=== PATIENT | male | born 1960 | race Two or more races ===

== ENCOUNTER 2023-11-12 13:58 | Inpatient (IN) | payer MEDICAID, OTHER ==
[~2023-11-12] VITALS: Ht 188 cm; Wt 112.4 kg
[2023-11-12] MEDS ORDERED: MORPHINE SULFATE INJ 2 MG/ml SYRG IV PRN (15:00)
[2023-11-12] MEDS ORDERED: ONDANSETRON HCL 4 MG/2 ML VIAL IV PRN (15:00)
[2023-11-12] MEDS ORDERED: ACETAMINOPHEN 325 MG TAB PO PRN (15:00)
[2023-11-12] MEDS ORDERED: HYDROcodone-ACET 5/325MG TAB PO PRN (15:00)
[2023-11-12] MEDS ORDERED: VANCOMYCIN PER PHARMACY 0 MG IV SCH (15:00)
[2023-11-12] MEDS ORDERED: DEXTROSE (50%) 50ML SYRG IV PRN (15:15)
[2023-11-12] MEDS: InsuLIN REG 1unit/0.01ml Soln (100units/ml) SC SCH ×2 (17:00→22:50)
[2023-11-12] MEDS ORDERED: PIPERACILLIN-TAZOB 3.375GM 100 ML IV SCH (18:00)
[2023-11-12 19:59] VITALS: BP 152/75; PULSE 63; RESP 20; TEMP 98.2
[2023-11-12 20:00] VITALS: BP 152/75; PULSE 63; RESP 20; TEMP 98.2; O2SAT 94
[2023-11-12 20:13] LABS: Prothrombin Time 10.5 sec (9.3-11.8)
[2023-11-12] MEDS ORDERED: CHLO25TA2 PO (20:25)
[2023-11-12] MEDS ORDERED: METF-372 PO (20:25)
[2023-11-12] MEDS ORDERED: GLIP10TA9 PO (20:25)
[2023-11-12] MEDS ORDERED: SIMV40TA18 PO (20:25)
[2023-11-12] MEDS: ACCU-CHEK COMFORT CURVE STRIP VI SCH (20:53)
[2023-11-12 21:00] VITALS: BP 152/75; PULSE 63; RESP 20; TEMP 98.2; O2SAT 94
[2023-11-12] MEDS: PIPERACILLIN-TAZOB 3.375GM 100 ML IV ONE (21:39)
[2023-11-12] MEDS: SODIUM CHLORIDE 0.9% 1,000 ML IV SCH (21:40)
[2023-11-12] MEDS: VANCOMYCIN 1GM/200ML 200 ML IV ONE (22:50)
[2023-11-13 01:00] VITALS: BP 142/76; PULSE 59; RESP 20; TEMP 97.7; O2SAT 96
[2023-11-13] MEDS: PIPERACILLIN-TAZOB 3.375GM 100 ML IV SCH (03:09)
[2023-11-13 05:00] VITALS: BP 132/72; PULSE 56; RESP 20; TEMP 96.4; O2SAT 94
[2023-11-13 06:21] LABS: Basophils # (auto) 0 10 ^3/uL (0-0.2); Basophils % (auto) 0.3 % (0.0-2.0); Eosinophils # (auto) 0.3 10 ^3/uL (0-0.8); Eosinophils % (auto) 4.7 % (0.0-7.0); Hematocrit 37.5 % (41.0-53.0); Hemoglobin 12.9 g/dL (13.5-17.5); Lymphocytes # (auto) 2.5 10 ^3/uL (0.4-5.4); Lymphocytes % (auto) 39.6 % (10.0-50.0); Mean Corpuscular Hemoglobin 30.4 pg (28.0-32.0); Mean Corpuscular Hgb Conc. 34.3 g/dL (32.0-36.0); Mean Corpuscular Volume 88.7 fL (80.0-100.0); Monocytes # (auto) 0.7 10 ^3/uL (0-1.3); Monocytes % (auto) 10.3 % (0.0-12.0); Neutrophils # (auto) 2.9 10 ^3/uL (1.6-8.6); Neutrophils % (auto) 45.1 % (37.0-80.0); Nucleated Red Blood Cells % 0.1 %; Red Blood Cells 4.23 10^6/uL (4.5-5.90); Red Cell Distribution Width 13.3 % (11.8-14.3); White Blood Cell 6.3 10^3/uL (4.4-10.8)
[2023-11-13 06:31] LABS: Anion Gap 7 (5-15); Calcium 9.1 mg/dL (8.7-10.4); Carbon Dioxide 25 mmol/L (20-30); Chloride 107 mmol/L (98-107); Potassium 3.6 mmol/L (3.5-5.1); Sodium 139 mmol/L (136-145)
[2023-11-13 06:37] LABS: BUN/Creatinine Ratio 11.8 (10.0-20.0); Blood Urea Nitrogen 11 mg/dL (9-23); Glucose 170 mg/dL (74-106)
[2023-11-13] MEDS: ENOXAPARIN SOD 40 MG/0.4 ML SYRINGE SC SCH (08:44)
[2023-11-13 09:00] VITALS: BP 150/77; PULSE 55; RESP 18; TEMP 97.7; O2SAT 96
[2023-11-13] MEDS: VANCOMYCIN 1GM/200ML 200 ML IV SCH (12:25)
[2023-11-13 13:00] VITALS: BP 150/73; PULSE 54; RESP 18; TEMP 97.6; O2SAT 97
[2023-11-13] MEDS: PIPERACILLIN-TAZO 4.5GM 100 ML IV SCH (14:27)
[2023-11-13] MEDS ORDERED: SEMA1INJ2 SC (16:27)
[2023-11-13] MEDS ORDERED: PIO30T PO (16:27)
[2023-11-13] MEDS ORDERED: LISI-275 PO (16:27)
[2023-11-13 16:42] VITALS: BP 139/56; PULSE 55; RESP 18; TEMP 98.1; O2SAT 96
[2023-11-13 21:00] VITALS: BP 137/86; PULSE 59; RESP 20; TEMP 98.2; O2SAT 97
[2023-11-14] VITALS (7 sets, daily range): BP systolic 119–152; BP diastolic 55–81; PULSE 54–88; RESP 16–20; TEMP 96.3–98.3; O2SAT 90–97
[2023-11-14 16:06] LABS: Basophils # (auto) 0 10 ^3/uL (0-0.2); Basophils % (auto) 0.4 % (0.0-2.0); Eosinophils # (auto) 0.3 10 ^3/uL (0-0.8); Eosinophils % (auto) 5.3 % (0.0-7.0); Hematocrit 39.5 % (41.0-53.0); Hemoglobin 13.3 g/dL (13.5-17.5); Lymphocytes # (auto) 2.2 10 ^3/uL (0.4-5.4); Lymphocytes % (auto) 37.4 % (10.0-50.0); Mean Corpuscular Hemoglobin 29.9 pg (28.0-32.0); Mean Corpuscular Hgb Conc. 33.5 g/dL (32.0-36.0); Monocytes # (auto) 0.6 10 ^3/uL (0-1.3); Monocytes % (auto) 10.1 % (0.0-12.0); Neutrophils # (auto) 2.8 10 ^3/uL (1.6-8.6); Neutrophils % (auto) 46.8 % (37.0-80.0); Nucleated Red Blood Cells % 0.1 %; Red Blood Cells 4.44 10^6/uL (4.5-5.90); Red Cell Distribution Width 13.5 % (11.8-14.3); White Blood Cell 5.9 10^3/uL (4.4-10.8)
[2023-11-14 16:26] LABS: INR 1.03 (0.9-1.15); Prothrombin Time 10.8 sec (9.3-11.8)
[2023-11-15] VITALS (7 sets, daily range): BP systolic 131–166; BP diastolic 66–82; PULSE 57–63; RESP 16–18; TEMP 97.8–99.3; O2SAT 92–98
[2023-11-15 07:14] LABS: Anion Gap 7 (5-15); Carbon Dioxide 27 mmol/L (20-30); Chloride 105 mmol/L (98-107); Potassium 3.8 mmol/L (3.5-5.1); Sodium 139 mmol/L (136-145)
[2023-11-15 07:16] LABS: Calcium 9.1 mg/dL (8.5-10.1)
[2023-11-15 07:21] LABS: Blood Urea Nitrogen 11 mg/dL (9-23); Glucose 194 mg/dL (74-106)
[2023-11-15] MEDS: LIDOCAINE 1% (LOCAL ANESTH.) PF 5ml SDV ID ONE (08:40)
[2023-11-15] MEDS: SODIUM CHLOR 0.9% PF (SALINE LOCK) 10ML VIAL/SYR IV SCH (10:15)
[2023-11-15] MEDS: DAKINS QUARTER STR 0.125% (NaHypochlorite) 473 ML TOPICAL SOL TOP SCH (21:46)
[2023-11-16 05:00] VITALS: BP 140/55; PULSE 62; RESP 16; TEMP 98.5; O2SAT 96
[2023-11-16 08:10] VITALS: PULSE 63; RESP 17; O2SAT 95
[2023-11-16 08:32] VITALS: BP 171/74; PULSE 63; RESP 17; TEMP 97.9; O2SAT 95
[2023-11-16 13:00] VITALS: BP 134/72; PULSE 59; RESP 17; TEMP 97.9; O2SAT 93
[2023-11-16 17:00] VITALS: BP 119/65; PULSE 62; RESP 17; TEMP 98; O2SAT 94
[2023-11-16 21:00] VITALS: BP 147/80; PULSE 67; RESP 18; TEMP 98; O2SAT 96
[2023-11-17] VITALS (7 sets, daily range): BP systolic 114–163; BP diastolic 66–87; PULSE 54–63; RESP 17–19; TEMP 97.8–98.5; O2SAT 93–97
[2023-11-17] MEDS: cefTRIAXone 1GM/50ML D5W 50 ML IV ONE (22:48)
[2023-11-18] VITALS (9 sets, daily range): BP systolic 126–158; BP diastolic 74–84; PULSE 55–89; RESP 14–20; TEMP 97.3–98.5; O2SAT 93–98
[2023-11-18 06:58] LABS: Chloride 107 mmol/L (98-107); Potassium 3.8 mmol/L (3.5-5.1); Sodium 138 mmol/L (136-145)
[2023-11-18 06:59] LABS: Anion Gap 9 (5-15); Calcium 8.6 mg/dL (8.5-10.1); Carbon Dioxide 22 mmol/L (20-30)
[2023-11-18 07:03] LABS: Basophils # (auto) 0 10 ^3/uL (0-0.2); Basophils % (auto) 0.3 % (0.0-2.0); Eosinophils # (auto) 0.4 10 ^3/uL (0-0.8); Eosinophils % (auto) 5.1 % (0.0-7.0); Hemoglobin 13.5 g/dL (13.5-17.5); Lymphocytes # (auto) 2.8 10 ^3/uL (0.4-5.4); Lymphocytes % (auto) 37.9 % (10.0-50.0); Mean Corpuscular Hemoglobin 30.2 pg (28.0-32.0); Mean Corpuscular Hgb Conc. 33.7 g/dL (32.0-36.0); Mean Corpuscular Volume 89.7 fL (80.0-100.0); Monocytes # (auto) 0.6 10 ^3/uL (0-1.3); Monocytes % (auto) 8.2 % (0.0-12.0); Neutrophils # (auto) 3.6 10 ^3/uL (1.6-8.6); Neutrophils % (auto) 48.5 % (37.0-80.0); Nucleated Red Blood Cells % 0.1 %; Red Blood Cells 4.46 10^6/uL (4.5-5.90); Red Cell Distribution Width 13.4 % (11.8-14.3); White Blood Cell 7.5 10^3/uL (4.4-10.8)
[2023-11-18 07:04] LABS: BUN/Creatinine Ratio 7.4 (10.0-20.0); Blood Urea Nitrogen 7 mg/dL (9-23); Glucose 148 mg/dL (74-106)
[2023-11-18] MEDS ORDERED: hydrALAZINE HCL 20 MG/ML VL IV PRN (14:30)
[2023-11-19 01:00] VITALS: BP 154/76; PULSE 60; RESP 18; TEMP 98.2; O2SAT 95
[2023-11-19 05:00] VITALS: BP 158/82; PULSE 54; RESP 17; TEMP 98.4; O2SAT 97
[2023-11-19 08:00] VITALS: PULSE 71; RESP 20; O2SAT 94
[2023-11-19 09:00] VITALS: BP 138/76; PULSE 55; RESP 18; TEMP 97.7; O2SAT 94
[2023-11-19 13:00] VITALS: BP 132/71; PULSE 54; RESP 18; TEMP 98.1; O2SAT 98
[2023-11-19 17:00] VITALS: BP 131/74; PULSE 59; RESP 18; TEMP 98; O2SAT 98
== END 2023-11-19 17:10 | disposition home health service (06) | DRG 344 ==
LOC: EAST 14:57 → UNDOADMIN 18:50 → EAST 18:50
PROVIDERS: ADMIT Internal Medicine; ATTEND Internal Medicine
PROC: 02HV33Z Insertion of Infusion Device into Superior Vena Cava, Percutaneous Approach (ICD-10-PCS; principal; 2023-11-15)
PROC: B548ZZA Ultrasonography of Superior Vena Cava, Guidance (ICD-10-PCS; 2023-11-15)
PROC: 0JBR0ZZ Excision of Left Foot Subcutaneous Tissue and Fascia, Open Approach (ICD-10-PCS; 2023-11-15)
DX: E11.69 Type 2 diabetes mellitus with other specified complication (principal); M86.172 Other acute osteomyelitis, left ankle and foot; E11.621 Type 2 diabetes mellitus with foot ulcer; L03.032 Cellulitis of left toe; L97.529 Non-pressure chronic ulcer of other part of left foot with unspecified severity; E11.628 Type 2 diabetes mellitus with other skin complications; E11.65 Type 2 diabetes mellitus with hyperglycemia; I10 Essential (primary) hypertension; E78.00 Pure hypercholesterolemia, unspecified; Z79.899 Other long term (current) drug therapy; Z79.4 Long term (current) use of insulin
CPT/HCPCS: 36415; 36569; 71045; 73718; 80048; 80202; 82565; 82962; 83036; 83735; 85025; 85610; G0378; J1815; J2543